=== PATIENT | male | born 1990 | race Caucasian/White ===

== ENCOUNTER 2023-04-18 11:48 | Emergency (ER) | payer OTHER ==
[~2023-04-18] VITALS: Ht 167.6 cm; Wt 61.2 kg
[2023-04-18] MEDS ORDERED: PROTONIX20 MG PO (12:19)
== END 2023-04-18 15:32 | disposition home or self-care (01) ==
LOC: ER 11:48
PROVIDERS: General Practice
DX: M54.9 Dorsalgia, unspecified (principal); Z88.8 Allergy status to other drugs, medicaments and biological substances; Z20.822 Contact with and (suspected) exposure to COVID-19
CPT/HCPCS: 36415; 74176; 96372; 99284; J1885